=== PATIENT | female | born 1965 | race Caucasian/White ===

== ENCOUNTER 2025-02-20 21:59 | Emergency (ER) | payer MEDICARE ==
[~2025-02-20] VITALS: Ht 160 cm; Wt 72.6 kg
[2025-02-20] MEDS: ACETAMINOPHEN 500 MG TABLET PO ONE (23:21)
[2025-02-20] MEDS: IBUPROFEN 200 MG TABLET PO ONE (23:21)
[2025-02-21] MEDS ORDERED: TRAM50TA2 PO (00:41)
[2025-02-21 02:28] VITALS: BP 100/63; TEMP 98; O2SAT 97
== END 2025-02-21 02:00 | disposition home or self-care (01) ==
LOC: ER 22:09
DX: S92.355A Nondisplaced fracture of fifth metatarsal bone, left foot, initial encounter for closed fracture (principal); M25.571 Pain in right ankle and joints of right foot; E78.5 Hyperlipidemia, unspecified; F17.210 Nicotine dependence, cigarettes, uncomplicated; M79.7 Fibromyalgia; I10 Essential (primary) hypertension; F41.9 Anxiety disorder, unspecified; F32.A Depression, unspecified; R29.6 Repeated falls; W18.39XA Other fall on same level, initial encounter; Y93.89 Activity, other specified; Y92.89 Other specified places as the place of occurrence of the external cause; Y99.8 Other external cause status
CPT/HCPCS: 73600; 73620; A4606; A4663